=== PATIENT | male | born 1985 | race Caucasian/White ===

== ENCOUNTER 2020-11-19 09:19 | Observation (INO) ==
[2020-11-19] MEDS ORDERED: PIPERACILLIN SODIUM/TAZOBACTAM 3.375 GM in DEXTROSE 5% IN WATER 50 ML IV ONE (09:55)
--- NOTE | 2020-11-19 10:13 | Emergency Department Note ---
Abdominal Pain HPI General Chief Complaint: Abdominal Pain Stated Complaint: abdominal pain Time Seen by Provider: 11/19/20 09:23 Source: patient Mode of arrival: ambulatory Limitations: no limitations History of Present Illness HPI Narrative: Narrative: Presents to room T2 for evaluation of right-sided abdominal pain. I called this patient and asked him to return to the emergency department for repeat evaluation for abdominal pain. The patient was seen last night and had a CT scan which was over read this morning and showed a possible fishbone which may have perforated the bowel wall. The patient last night had a leukocytosis with tachycardia and elevated lactic acid consistent with severe sepsis. In the context of possible bowel perforation the patient was advised to come back to the emergency department. The patient states he continues to have intermittent right-sided abdominal pain. He denies fevers or chills. No vomiting. No change in bowel habits. He states the pain waxes and wanes but d enies any exacerbating or alleviating factors. Related Data Home Medications Medication Instructions Recorded Confirmed No Known Home Meds 11/19/20 11/19/20 Allergies Allergy/AdvReac Type Severity Reaction Status Date / Time No Known Drug Allergies Allergy Verified 11/19/20 09:22 Review of Systems ROS ROS Narrative: Narrative: All systems ED: reviewed and negative except as stated. PFS Narrative Patient History Narrative: Narrative: Medical/Surgical/Family History All Active Problems (Updated 11/19/20 @ 10:13 by Edgar Santiago MD) Fracture of tooth (Acute) Dental caries (Acute) Toothache (Acute) Acute right flank pain (Acute) Abdominal pain (Acute) Abdominal pain (Acute) Foreign body alimentary tract (Acute) Social History Smoking Status: Current every day smoker Exam Narrative Narrative: Narrative: General Limitations: no limitations General appearance: Present alert and in no apparent distress Head Head: Present atraumatic, normocephalic and normal inspection Eye Eye: Present normal appearance and EOMI; Absent conjunctival injection ENT ENT: Present normal exam and mucous membranes moist Neck Neck: Present normal inspection and trachea midline Respiratory Respiratory: Present normal lung sounds bilaterally; Absent respiratory distress Cardiovascular Cardiovascular: Present regular rate, normal rhythm and normal heart sounds Adbominal Abdominal: Present soft; Absent distention, tenderness (The patient locates diffuse abdominal pain in the right lower quadrant but is not tender to palpation.), guarding and rebound Extremities Extremities: Present normal inspection; Absent tenderness Back Back: Present normal inspection; Absent tenderness Neurological Neurological: Present alert, oriented X3 and CN II-XII intact; Absent motor sensory deficit Psychiatric Psychiatric: Present normal affect and normal mood Skin Skin: Present warm (WNL) and dry; Absent rash Course Vital Signs Vital signs: Vital Signs Temperature 96.9 F L 11/19/20 09:20 Pulse Rate 92 H 11/19/20 09:20 Respiratory Rate 16 11/19/20 09:20 Blood Pressure 138/88 11/19/20 09:20 Pulse Oximetry (%) 99 11/19/20 09:20 Temperature 96.9 F L 11/19/20 09:20 Pulse Rate 92 H 11/19/20 09:20 Respiratory Rate 16 11/19/20 09:20 Blood Pressure 138/88 11/19/20 09:20 Pulse Oximetry (%) 99 11/19/20 09:20 MDM MDM Narrative Medical decision making narrative: Narrative: I discussed the patient's case with the on-call surgeon, Dr. Vazquez. He is requested the patient be admitted to the medical floor. We have also given a dose of IV Zosyn. He will tentatively plan to evaluate the patient on the floor and consider definitive evaluation and treatment in the operating room. At the time of admission the patient is nontoxic and resting comfortably. 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
[2020-11-19 10:32] LABS: Basophils # (Auto) 0.07 K/mcL (0.00-0.20); Basophils % (Auto) 0.6 % (0.0-2.0); Eosinophils # (Auto) 1.25 K/mcL (0.00-0.70); Eosinophils % (Auto) 11.1 % (0.0-7.0); Hematocrit 46.8 % (41.0-55.0); Hemoglobin 15.3 g/dL (13.5-16.5); Lymphocytes # (Auto) 2.76 K/mcL (1.50-4.80); Lymphocytes % (Auto) 24.4 % (15.0-49.0); Mean Cell Volume 97.9 fL (80.0-100.0); Mean Corpuscular HGB Conc 32.7 g/dL (31.0-36.0); Mean Platelet Volume 9.6 fL (7.4-10.4); Monocytes % (Auto) 8.8 % (1.0-12.0); Neutrophils % (Auto) 55.1 % (38.0-78.0); Platelet Count 263 K/mcL (140-440); RBC 4.78 M/mcL (4.50-5.90); Red Cell Distribution Width 12.9 % (11.5-14.5); WBC 11.3 K/mcL (4.5-11.0)
[2020-11-19 10:43] LABS: ALT/SGPT 71 U/L (<40); AST/SGOT 41 U/L (<40); Albumin 4.1 gm/dL (3.2-5.2); Albumin/Globulin Ratio 1.4 (1.0-2.3); Alkaline Phosphatase 107 U/L (39-117); Bilirubin,Total 0.6 mg/dL (0.1-1.0); Blood Urea Nitrogen 11 mg/dL (6-20); Calcium 8.6 mg/dL (8.6-10.4); Carbon Dioxide 21 mmol/L (22-30); Chloride 103 mmol/L (96-108); Globulin 2.9 gm/dL (2.2-3.7); Glomerular Filtration Rate 116; Glucose 114 mg/dL (70-105)
[2020-11-19] MEDS ORDERED: IOPAMIDOL 100 ML BOTTLE IV ONE (11:02)
--- NOTE | 2020-11-19 15:27 | General Surg History&Physical ---
HPI History of Present Illness Patient information: Note initiated : 11/19/20 at 3:19 pm Service Date, if different from initiated Date: [] Patient: Oni Hitchcock a 35 y/o M admitted on 11/19/20 for abdominal pain. Chief Complaint: [] Chief complaint: Foreign body of small bowel with microperforation History of present illness: Mr. Hitchcock is a 35 year old M admitted with micro perforation of distal bowel due to sharp object. This can be metal or wood. The patient denies having toothpicks in his mouth or eating fish or any other bone containing meats. He has a 1 week history of pain in his right lower quadrant radiating to his right groin. The pain is crampy in nature. He denies nausea. He was seen in the emergency room yesterday and was noted to have a white blood count of 15.1 and a lactate of 2.1. He was hydrated and a CT was done. Review of that CT shows a foreign body that appears to be pushing through the wall of the distal small bowel. There is no fluid collection or free air noted. The patient still has tenderness in the right lower quadrant but states that it is improved. His white blood count has improved to 11.3. His lactate is also improved to 1.5. Patient has a foreign body perforation of small bowel that is probably contained. He will be treated with IV antibiotics and hopefully will not need operative treatment. Review of Systems All systems: reviewed and no additional remarkable complaints except as stated PFSH PFSH All Active Problems (Updated 11/19/20 @ 15:26 by Jarred Vazquez MD) Perforation of intestine (nontraumatic) (Acute) Fracture of tooth (Acute) Dental caries (Acute) Toothache (Acute) Acute right flank pain (Acute) Abdominal pain (Acute) Abdominal pain (Acute) Foreign body alimentary tract (Acute) MEDS/ALLERGIES Home Medications and Allergies Home Medications Medication Instructions Recorded Confirmed Type No Known Home Meds 11/19/20 11/19/20 History Allergies Allergy/AdvReac Type Severity Reaction Status Date / Time No Known Drug Allergies Allergy Verified 11/19/20 09:22 Physical Examination Vital Signs Vital signs: Temp Pulse Resp BP Pulse Ox 98.3 F 83 16 121/81 99 11/19/20 12:00 11/19/20 12:00 11/19/20 12:00 11/19/20 12:00 11/19/20 12:00 General physical appearance General physical exam: well developed, well nourished, no distress, moderate pain and obese Eyes Eye exam: PERRL and normal ocular movement ENT ENT exam: normal mucosa and no congestion Head Head exam IM: Present atraumatic, normal inspection and normocephalic Neck Neck exam: no masses, no bruits, trachea midline, no lymphadenopathy and no venous distension Cardiovascular Cardiovascular exam IM: Present normal rate and rhythm, RRR, +S1 and +S2; Absent JVD Respiratory Respiratory exam: normal expansion, normal respiratory effort and clear to auscultation Abdomen Abdomen: Present soft and tender (Mild tenderness in right lower quadrant without guarding); Absent masses Integumentary Integumentary: Present no rash and no growths Neurologic Neurologic: Present normal coordination and normal sensation Musculoskeletal Musculoskeletal: Present normal gait, normal posture and other Psychiatric Psychiatric: Present oriented to time, oriented to person, oriented to place, speech is normal and memory intact Results Labs Result diagrams: 11/19/20 09:35 11/19/20 09:34 Labs: Abnormal lab results 11/19/20 11/19/20 Range/Units 09:34 09:35 WBC 11.3 H (4.5-11.0) K/mcL Eos % (Auto) 11.1 H (0.0-7.0) % Garden # (Auto) 1.00 H (0.10-0.90) K/mcL Eos # (Auto) 1.25 H (0.00-0.70) K/mcL Carbon Dioxide 21 L (22-30) mmol/L Glucose 114 H (70-105) mg/dL AST 41 H (<40) U/L ALT 71 H (<40) U/L Diabetes panel 11/19/20 Range/Units 09:34 Sodium 136 (133-145) mmol/L Potassium 4.2 (3.3-5.1) mmol/L Chloride 103 (96-108) mmol/L Carbon Dioxide 21 L (22-30) mmol/L BUN 11 (6-20) mg/dL Creatinine 0.8 (0.7-1.2) mg/dL Glucose 114 H (70-105) mg/dL Calcium 8.6 (8.6-10.4) mg/dL AST 41 H (<40) U/L ALT 71 H (<40) U/L Alkaline Phosphatase 107 (39-117) U/L Total Protein 7.0 (5.9-8.4) gm/dL Albumin 4.1 (3.2-5.2) gm/dL Calcium panel 11/19/20 Range/Units 09:34 Calcium 8.6 (8.6-10.4) mg/dL Albumin 4.1 (3.2-5.2) gm/dL Pituitary panel 11/19/20 Range/Units 09:34 Sodium 136 (133-145) mmol/L Potassium 4.2 (3.3-5.1) mmol/L Chloride 103 (96-108) mmol/L Carbon Dioxide 21 L (22-30) mmol/L BUN 11 (6-20) mg/dL Creatinine 0.8 (0.7-1.2) mg/dL Glucose 114 H (70-105) mg/dL Calcium 8.6 (8.6-10.4) mg/dL Adrenal panel 11/19/20 Range/Units 09:34 Sodium 136 (133-145) mmol/L Potassium 4.2 (3.3-5.1) mmol/L Chloride 103 (96-108) mmol/L Carbon Dioxide 21 L (22-30) mmol/L BUN 11 (6-20) mg/dL Creatinine 0.8 (0.7-1.2) mg/dL Glucose 114 H (70-105) mg/dL Calcium 8.6 (8.6-10.4) mg/dL Total Bilirubin 0.6 (0.1-1.0) mg/dL AST 41 H (<40) U/L ALT 71 H (<40) U/L Alkaline Phosphatase 107 (39-117) U/L Total Protein 7.0 (5.9-8.4) gm/dL Albumin 4.1 (3.2-5.2) gm/dL All other labs normal. A/P Assessment and plan (1) Perforation of intestine (nontraumatic): Assessment and plan: This perforation appears to be related to a sharp foreign body and is clinically contained at this time Status: Acute Narrative A/P Narrative: Clear liquid diet Check CBC in the morning Zosyn 3.375 g IV every 6 hours Time Spent With Patient Time: Total time spent is greater than 50% in coordination of care (as documented) at patient's floor/unit and/or counseling patient:
[2020-11-19] MEDS ORDERED: HYDROmorphone 1 MG/ML SYRINGE IV PRN (15:31)
[2020-11-19] MEDS: 0.9 % SODIUM CHLORIDE 1,000 ML IV SCH (16:43)
[2020-11-19] MEDS: NICOTINE 21 MG PATCH TOPICAL SCH (16:44)
[2020-11-19] MEDS: PIPERACILLIN SODIUM/TAZOBACTAM 3.375 GM in DEXTROSE 5% IN WATER 50 ML IV SCH (16:44)
[2020-11-19] MEDS: oxyCODONE HCL 5 MG TABLET PO PRN (17:35)
[2020-11-20] MEDS: PIPERACILLIN SODIUM/TAZOBACTAM 3.375 GM in DEXTROSE 5% IN WATER 50 ML IV SCH ×5 (00:01→23:57)
[2020-11-20 07:58] LABS: Basophils # (Auto) 0.07 K/mcL (0.00-0.20); Basophils % (Auto) 0.7 % (0.0-2.0); Eosinophils # (Auto) 1.13 K/mcL (0.00-0.70); Eosinophils % (Auto) 11.4 % (0.0-7.0); Hematocrit 43.7 % (41.0-55.0); Hemoglobin 14.4 g/dL (13.5-16.5); Lymphocytes # (Auto) 3.09 K/mcL (1.50-4.80); Lymphocytes % (Auto) 31.3 % (15.0-49.0); Mean Cell Volume 94.6 fL (80.0-100.0); Mean Platelet Volume 9.9 fL (7.4-10.4); Monocytes # (Auto) 0.67 K/mcL (0.10-0.90); Monocytes % (Auto) 6.8 % (1.0-12.0); Neutrophils % (Auto) 49.8 % (38.0-78.0); Platelet Count 270 K/mcL (140-440); RBC 4.62 M/mcL (4.50-5.90); WBC 9.9 K/mcL (4.5-11.0)
[2020-11-20] MEDS: oxyCODONE HCL 5 MG TABLET PO PRN (09:29)
[2020-11-20] MEDS ORDERED: NICOTINE 21 MG PATCH TOPICAL SCH (10:00)
[2020-11-20] MEDS: NICOTINE 21 MG PATCH TOPICAL SCH (12:05)
--- NOTE | 2020-11-20 14:02 | General Surgery Progress Note ---
SUBJECTIVE Subjective Patient information: Note initiated : 11/20/20 at 1:58 pm Service Date, if different from initiated Date: [] Patient: Oni Hitchcock 35 y/o M admitted on 11/19/20 for abdominal pain. Chief Complaint: [] Interval history: Patient states that he feels better. He has been afebrile. He has noticed less tenderness of his abdomen and his white blood count is still normal. He denies nausea. Constitutional Vitals: Vital Signs Temp Pulse Resp BP Pulse Ox 98.7 F 70 18 112/74 97 11/20/20 12:00 11/20/20 12:00 11/20/20 12:00 11/20/20 12:00 11/20/20 12:00 Period Temp Pulse Resp BP Sys/Smith Pulse Ox Last 24 Hr 97.7 F-98.7 F 61-82 16-20 98-130/59-86 96-99 Intake and Output 11/19/20 11/20/20 11/20/20 21:59 05:59 13:59 Intake Total 970 550 890 Output Total 350 1300 Balance 620 -750 890 Weight 204 lb Intake & Output: Intake & Output 11/19/20 11/20/20 11/20/20 21:59 05:59 13:59 Intake Total 970 550 890 Output Total 350 1300 Balance 620 -750 890 Weight 204 lb Intake: IV 50 50 50 Zosyn 3.375 gm In Dextrose 5% 50 50 50 in Water 50 ml @ 100 mls/hr IV Q6H [facility] Rx#:[id number] Oral 920 500 840 Output: Void Amount 350 1300 Other: Meal Dinner Percent of Meal Consumed 100% Feeding Ability Independent Urine Appearance Clear Clear Urine Color Bright Yellow Bright Yellow # Voids 1 1 Respiratory Respiratory exam: Present normal respiratory exam and CTAB Cardiovascular Cardiovascular exam: Present RRR, +S1 and +S2; Absent JVD GI/Abdominal GI/Abdominal exam: Present normal bowel sounds and soft Additional comments: Good active bowel sounds; much less tenderness in right lower quadrant; no evidence of guarding or rebound. Extremities Exam Extremities exam: Present full ROM, normal capillary refill and normal inspection; Absent pedal edema and tenderness Neurological Exam Neurological exam: Present alert, normal gait and oriented X3 Psychiatric Psychiatric exam: Present normal affect and normal mood Skin Skin exam: Present intact and normal color A/P Assessment and plan (1) Perforation of intestine (nontraumatic): Assessment and plan: This perforation appears to be related to a sharp foreign body and is clinically contained at this time Status: Acute Narrative A/P Narrative: Continue present antibiotic therapy CT of abdomen and pelvis in the morning Full liquid diet Time Spent With Patient Time: Total time spent is greater than 50% in coordination of care (as documented) at patient's floor/unit and/or counseling patient:
[2020-11-20] MEDS: 0.9 % SODIUM CHLORIDE 1,000 ML IV SCH (14:29)
[2020-11-21] MEDS: PIPERACILLIN SODIUM/TAZOBACTAM 3.375 GM in DEXTROSE 5% IN WATER 50 ML IV SCH ×2 (05:35→11:45)
[2020-11-21 07:24] LABS: Basophils # (Auto) 0.08 K/mcL (0.00-0.20); Basophils % (Auto) 0.7 % (0.0-2.0); Eosinophils # (Auto) 1.23 K/mcL (0.00-0.70); Eosinophils % (Auto) 11.3 % (0.0-7.0); Hematocrit 44.6 % (41.0-55.0); Hemoglobin 14.9 g/dL (13.5-16.5); Lymphocytes # (Auto) 2.66 K/mcL (1.50-4.80); Lymphocytes % (Auto) 24.4 % (15.0-49.0); Mean Cell Volume 93.9 fL (80.0-100.0); Mean Corpuscular HGB Conc 33.4 g/dL (31.0-36.0); Monocytes # (Auto) 0.86 K/mcL (0.10-0.90); Monocytes % (Auto) 7.9 % (1.0-12.0); Neutrophils % (Auto) 55.7 % (38.0-78.0); Platelet Count 277 K/mcL (140-440); RBC 4.75 M/mcL (4.50-5.90); Red Cell Distribution Width 12.7 % (11.5-14.5); WBC 10.9 K/mcL (4.5-11.0)
--- NOTE | 2020-11-21 08:39 | Cat Scan Report ---
History: Follow-up foreign body with perforation of small intestine6 technique: The patient was imaged following injection of intravenous nonionic contrast6 at 2.5 mm intervals from the diaphragm through the symphysis pubis. Sagittal and coronal reformats were created. The radiation exposure was limited using dose reduction technology. FINDINGS: The lung bases are clear. The liver and spleen are normal in size. Small accessory spleen is seen along the medial border of the spleen. Gallbladder and bile ducts are normal. There is no apparent mass or inflammation the pancreas. The adrenals and kidneys are normal. There is a persistent 1 x 13 mm linear radiopaque foreign body in the wall of the ileum in the right mid abdomen. This appears to penetrate the wall of the small intestine. There is no associated inflammation or obstruction. There is no surrounding free fluid or free intraperitoneal air. No bowel obstruction is present. This is unchanged from the recent study done on 11/18/20. No other foreign body is seen. Patient is developing mild circumferential thickening of the wall of the descending colon from the splenic flexure to the sigmoid junction. This has developed since the prior study. The cecum and ascending and transverse colon are noninflamed. There are no diverticula. No adenopathy is present. Urinary bladder is decompressed. IMPRESSION: New onset colitis involving the descending colon Stable small foreign body penetrating the wall of the ileum in the right mid abdomen. There is no associated inflammation. Interpreted and Authenticated by: Kartik Mckeon 11/21/20
[2020-11-21] MEDS: 0.9 % SODIUM CHLORIDE 1,000 ML IV SCH (09:57)
[2020-11-21] MEDS: NICOTINE 21 MG PATCH TOPICAL SCH (10:40)
--- NOTE | 2020-11-21 17:40 | Discharge Summary ---
Discharge Provider Provider Patient information: Note initiated : 11/21/20 at 5:33 pm Service Date, if different from initiated Date: [] Patient: Oni Hitchcock 35 y/o M admitted on 11/19/20 for abdominal pain. Chief Complaint: [] Date of admission: 11/19/20 11:01 Discharge date: 11/21/20 Primary care physician: Srinivas Hu DO Admitting clinician: Jarred Vazquez Consults: 11/19/20 Consult to Physician [CONS] Stat Comment: Consulting Provider: Jarred Vazquez Reason For Exam: Physician to Consult Attending physician on discharge: Jarred Vazquez Discharging clinician: Jarred Vazquez COURSE Hospital Course Hospital course: 35-year-old male who presented to the emergency room with complaint of right lower quadrant pain for 7 days duration. When initially seen his CT was interpreted as normal though his white count was elevated and he had an elevated lactate. He was hydrated and discharged home. Review of the CT however reveals a foreign body pushing through the wall of the terminal ileum. The patient returned to the hospital. He states that he still had tenderness but did feel better. Repeat CT showed improvement in white count and lactate. He still had significant tenderness. He was admitted and treated with IV antibiotics and a follow-up CT shows that the foreign body is still present but is contained. His white blood count is normal. There is a suggestion that he has development of thickening of the sigmoid colon suggestive of early colitis. He does not have any left colon symptoms. Patient is clinically stable and will be discharged home on 10 days of Levaquin. Discharge diagnosis: Foreign body perforation of small bowel Secondary discharge diagnosis: Sigmoid colitis Reason for admission: Foreign body perforation of terminal ileum Procedures: None Pertinent studies/significant findings: CT of abdomen and pelvis x2 Complications: None Time Spent with Patient Time attestation: Total time spent providing and/or coordinating discharge services: Physical Examination Vital Signs Vital signs: Temp Pulse Resp BP Pulse Ox 98.4 F 78 16 115/71 96 11/21/20 16:00 11/21/20 16:00 11/21/20 16:00 11/21/20 16:00 11/21/20 16:00 General physical appearance General physical exam: well developed, well nourished, no distress, moderate pain and obese Eyes Eye exam: PERRL and normal ocular movement ENT ENT exam: normal mucosa and no congestion Head Head exam IM: Present atraumatic, normal inspection and normocephalic Neck Neck exam: no masses, no bruits, trachea midline, no lymphadenopathy and no venous distension Cardiovascular Cardiovascular exam IM: Present normal rate and rhythm, RRR, +S1 and +S2; Absent JVD Respiratory Respiratory exam: normal expansion, normal respiratory effort and clear to auscultation Abdomen Abdomen: Present soft and non tender; Absent tender and masses Integumentary Integumentary: Present no rash and no growths Neurologic Neurologic: Present normal coordination and normal sensation Musculoskeletal Musculoskeletal: Present normal gait, normal posture and other Psychiatric Psychiatric: Present oriented to time, oriented to person, oriented to place, speech is normal and memory intact Discharge Plan Patient/Caregiver Discharge Instructions Activity: increase activity as tolerated Diet: Regular Diet Instructions: Levofloxacin (By mouth), Ulcerative Colitis (DC), Perforated Bowel (DC), GI (Gastrointestinal) Soft Diet (DC) Activity Restrictions/Additional Instructions: Increase activity as tolerated Follow a soft GI diet. Call on to set up a [address] Vazquez. Return to ER for fever, chills, uncontrolled pain, , inability to urinate or have a bowel movement, nausea and/or vomiting, swelling, redness, signs of infection, shortness of breath, chest pain, return of symptoms, or other acute symptom This discharge packet is provided to you to help keep you informed about your care. We want to ensure you get everything you need when you go home. You will also be receiving a call from us in a few days to follow up with you and see how you are doing since your discharge. This gives us a chance to listen to any concerns you maybe experiencing since you were discharged or any additional needs you may have, as well as providing us feedback on your care experience. We strive to always provide excellent care and thank you for your feedback and for choosing [facility]. Stand Alone Forms: Work/Release Restrictions Prescriptions: New levofloxacin [levofloxacin] 750 MG tablet 750 mg PO DAILY Qty: 10 RF: 0 Follow Up Plan Follow up with: Jarred Vazquez MD [Physician] - (Call office to schedule appointment for 2 weeks) Srinivas Hu DO [Primary Care Provider] - Patient Disposition: Home, Self-Care Prognosis: Fair Rehab Potential: Good I certify that the patient requires SNF services: No Overall status at discharge: patient is progressing back to baseline Discharge Orders: Discharge Order (Routine); Ordered 11/21/20 Ordered By: Jarred Vazquez Pending Pending Pending: Resuscitation Status Full Code Diet GI Soft/Transitional Start ThuNov 21 1348 Hydromorphone HCl (Hydromorphone 1 Mg/Ml Syringe) 1 mg IV Q4HP PRN; Protocol PRN Reason: Per Pain Protocol Last Admin: 11/19/20 19:35 Dose: 1 mg Documented by: HARLAN Piperacillin Sod/Tazobactam (Sod 3.375 gm/ Dextrose) 50 mls @ 100 mls/hr IV Q6H ANSHU; Protocol Last Infusion: 11/21/20 12:20 Dose: 100 mls/hr Documented by: Admin: 11/21/20 11:45 Dose: 100 mls/hr Documented by: Infusion: 11/21/20 06:05 Dose: 100 mls/hr Documented by: Admin: 11/21/20 05:35 Dose: 100 mls/hr Documented by: Infusion: 11/21/20 03:08 Dose: 0 mls/hr Documented by: Admin: 11/20/20 23:57 Dose: 100 mls/hr Documented by: Infusion: 11/20/20 18:17 Dose: 0 mls/hr Documented by: Admin: 11/20/20 17:47 Dose: 100 mls/hr Documented by: Infusion: 11/20/20 13:58 Dose: 100 mls/hr Documented by: Admin: 11/20/20 13:28 Dose: 100 mls/hr Documented by: LUIS F Infusion: 11/20/20 06:06 Dose: 100 mls/hr Documented by: LUIS F Admin: 11/20/20 05:36 Dose: 100 mls/hr Documented by: Infusion: 11/20/20 00:45 Dose: 0 mls/hr Documented by: Admin: 11/20/20 00:01 Dose: 100 mls/hr Documented by: Infusion: 11/19/20 17:45 Dose: 0 mls/hr Documented by: LUIS F Admin: 11/19/20 16:44 Dose: 100 mls/hr Documented by: [email or web address] Sodium Chloride (Sodium Chloride 0.9%) 1,000 mls @ 50 mls/hr IV .Q20H ANSHU Last Admin: 11/21/20 09:57 Dose: Not Given Documented by: FMVitor Admin: 11/20/20 14:29 Dose: 50 mls/hr Documented by: [email or web address] Infusion: 11/20/20 12:43 Dose: 50 mls/hr Documented by: [email or web address] Admin: 11/19/20 16:43 Dose: 50 mls/hr Documented by: [email or web address] Nicotine (Nicotine 21 Mg Patch) 21 mg TOPICAL DAILY@1000 ANSHU Last Admin: 11/21/20 10:40 Dose: 21 mg Documented by: Admin: 11/20/20 12:05 Dose: 21 mg Documented by: [email or web address] Admin: 11/19/20 16:44 Dose: 21 mg Documented by: [email or web address] Oxycodone HCl (Oxycodone Hcl 5 Mg Tablet) 10 mg PO Q4HP PRN; Protocol PRN Reason: Per Pain Protocol Last Admin: 11/20/20 09:29 Dose: 10 mg Documented by: [email or web address] Admin: 11/19/20 17:35 Dose: 10 mg Documented by: [email or web address] Shift Summary 11/21/20 04:46 Shift Summary by Mckenna Adams&Smita. up ad galina in room. No complaints of pain/nausea, so no prn's given. NS @ 50mls/hr to IV in LFA with intermittent zosyn. Voids in bathroom in urinal. Repeat CT this am to determine if surgery needed. WBC down to 9.9. Will go home at d/c. Initialized on 11/21/20 04:46 - END OF NOTE
== END 2020-11-21 17:53 | disposition home or self-care (01) ==
LOC: MEDSUR 09:19 → ED 09:19 → MEDSUR 11:05
PROVIDERS: ADMIT Family Medicine Adult Medicine; ATTEND Family Medicine Adult Medicine